=== PATIENT | female | born 1950 | race Caucasian/White ===

== ENCOUNTER → 2023-05-08 | Outpatient (CLI) | payer MEDICARE ==
[2023-05-08 12:51] LABS: INR 0.9 (<1.2); Partial Thromboplastin Time 26.6 sec (22.0-30.0); Prothrombin Time 10.1 sec (10.0-12.5)
[2023-05-08 15:12] LABS: HCT 44.4 % (37.2-46.3); HGB 14.6 g/dL (12.0-15.0); MCH 29.4 pg (27.0-32.0); MCHC 32.9 g/dL (32.0-37.0); MCV 89.5 FL (80.0-97.0); Mean Platelet Volume 10.1 FL (9.5-12.2); NRBC Per 100 WBC 0 X 10*3/uL (0.00-0.01); Platelet Count 270 X 10*3/uL (140-440); RBC 4.96 X 10*6/uL (4.10-5.20); RDW 12.8 % (11.5-14.5); WBC 9.89 X 10*3/uL (4.50-10.00)
[2023-05-08 16:27] LABS: ALT 25 U/L (8-44); AST 19 U/L (13-35); Albumin 4.8 g/dL (3.8-4.9); Albumin/Globulin Ratio 1.85 Ratio (1.60-3.17); Alkaline Phosphatase 75 U/L (41-126); BUN/Creat Ratio 37.67 Ratio (12.00-20.00); Blood Urea Nitrogen 22.6 mg/dL (9.0-27.0); Calcium 10.4 mg/dL (8.7-10.3); Carbon Dioxide 24.3 mmol/L (21.6-31.8); Chloride 102 mmol/L (96-109); Globulin 2.6 g/dL (1.6-3.3); Glucose 110 mg/dL (70-110); Potassium 4.4 mmol/L (3.5-5.5); Sodium 140 mmol/L (135-145); Total Bilirubin 0.4 mg/dL (0.3-1.2); Total Protein 7.4 g/dL (6.2-8.2)
== END | disposition home or self-care (01) ==
LOC: LABWHC1 11:07
PROVIDERS: ATTEND Orthopaedic Surgery
DX: Z01.818 Encounter for other preprocedural examination (principal); R94.31 Abnormal electrocardiogram [ECG] [EKG]; M16.11 Unilateral primary osteoarthritis, right hip; Z22.322 Carrier or suspected carrier of Methicillin resistant Staphylococcus aureus
CPT/HCPCS: 36415; 80053; 85027; 85610; 85730; 86850; 86900; 86901; 87070; 93005

== ENCOUNTER 2023-05-16 05:36 | Day surgery (SDC) | payer MEDICARE ==
[2023-05-08 16:21] VITALS: BMI 23.3
[~2023-05-16 05:36] MED LIST: ACETAMINOPHEN TAB 500 MG TAB PO PRN; GABAPENTIN 300 MG CAP PO PRN; MELOXICAM 7.5 MG TAB PO PRN; TRANEXAMIC 1,000 MG/100ML-NACL 1,000 MG in SALINE 1 100ML.BAG IVPB PRN
[2023-05-16] MEDS ORDERED: DEXAMETHASONE SOD PHOSPHATE 4 MG/ML 1 ML VIAL IV ONE (05:41)
[2023-05-16] MEDS ORDERED: LIDOCAINE 1% (10MG/ML) FOR IV START INTRADERMA PRN (05:41)
[2023-05-16] MEDS ORDERED: ONDANSETRON 4 MG/2 ML VIAL IVP ONE (05:41)
[2023-05-16] MEDS: LACTATED RINGERS 1,000 ML IV SCH (05:56)
[2023-05-16] MEDS ORDERED: ROPIVACAINE 5 MG/ML 30 ML VIAL ONE (06:51)
[2023-05-16] MEDS ORDERED: DEXAMETHASONE SOD PHOSPHATE 4 MG/ML 1 ML VIAL ONE (06:51)
[2023-05-16] MEDS ORDERED: MIDAZOLAM 2 MG/2 ML VIAL ONE (06:51)
[2023-05-16] MEDS ORDERED: TRANEXAMIC 1,000 MG/100ML-NACL PREMIX BAG ONE (06:51)
[2023-05-16] MEDS ORDERED: fentaNYL (PF) 50 MCG/ML 2 ML AMP ONE (06:51)
[2023-05-16] MEDS ORDERED: PROPOFOL 10 MG/ML 20 ML VIAL IV ONE (06:51)
[2023-05-16] MEDS ORDERED: PHENYLEPHRINE 10 MG/ML VIAL ONE (06:51)
[2023-05-16] MEDS ORDERED: HYDROmorphone 0.5 MG/0.5 ML SYRINGE IVP PRN ×4 (07:00→08:45)
[2023-05-16] MEDS ORDERED: MIDAZOLAM 2 MG/2 ML VIAL IV PRN (07:00)
[2023-05-16] MEDS ORDERED: ceFAZolin 1,000 MG in SODIUM CHLORIDE 0.9% 1,000 ML IRRIGATION ONE (07:21)
[2023-05-16] MEDS ORDERED: ROPIVACAINE 5 MG/ML 30 ML VIAL MISCELLANE ONE ×2 (07:31→08:12)
--- NOTE | 2023-05-16 08:18 | P.OP ---
Date of Procedure: 05/16/23 Preoperative Diagnosis: Severe osteoarthritis right hip Postoperative Diagnosis: Severe osteoarthritis right hip Procedure(s) Performed: Right total hip arthroplasty with a direct anterior approach Implants: [employer] Polarstem standard size 6 with a collar [employer] R3, 3 hole hemispherical acetabular shell, 54 mm [employer] Reflection 6.5 mm cancellus screw, 25 mm 2 [employer] R3, XLPE 20 acetabular liner [employer] Oxinium femoral head 36 mm, +0 All components were press-fit. The articulation is Oxinium on polyethylene. Anesthesia: spinal Surgeon: Baldo Yun Consumer Safety Officer #1: Kirsten Cloud Estimated Blood Loss (ml): 400 Pathology: none sent Condition: stable Disposition: PACU Indications for Procedure: After failure of conservative treatment we discussed the surgical and nonsu rgical treatment options at length. Patient wishes to proceed with a total hip arthroplasty with a direct anterior approach. Complications specific to this procedure were discussed at length, including but not limited to infection, leg length discrepancy, dislocation, nerve injury, and fracture. Covid-19 was also discussed at length with the patient, and they are aware of the current policies and procedures. The patient was given the option of delaying surgery, but they elect to proceed knowing these risks. Patient is aware of all these complications and informed consent was obtained Operative Findings: The operative findings are consistent with severe osteoarthritis of the right hip Description of Procedure: The patient was seen and evaluated in the preoperative area and the consent was reviewed. The operative site was marked with a skin marker. The patient verified the procedure and operative site. A AYSE block was placed by anesthesia in the preoperative area. The patient was then brought to the operating room and given preoperative antibiotics intravenously. 1 g of Tranexamic acid was also given intravenously. A spinal anesthetic was administered by the anesthesia department. The patient was then placed on the [place] table with the bony prominences well-padded. The hip area was then prepped with a ChloraPrep solution and draped in the usual sterile fashion. A universal timeout was then performed, which confirmed the patient's name, surgical site, ALLERGIES, and procedure being performed on the consent. Next the incision site was located at 1 cm distal and 4 cm lateral to the anterior superior iliac spine. The skin and subcutaneous tissues were sharply incised. Incision was carefully dissected down to the fascia overlying the tensor fascia chinmay muscle. This fascia was then incised in line with the muscle fibers. Care was taken to stay laterally in order to avoid injuring the lateral femoral cutaneous nerve. Next, using blunt finger dissection, the tensor fascia chinmay muscle was dissected off its investing fascia. The muscle was then carefully retracted laterally with a cobra retractor over the lateral neck of the femur. Next, the circumflex vessels were identified and cauterized using the Aquamantis device. The anterior hip capsule was then exposed. The capsule was then opened and an inverted T fashion. The retractors were then placed intracapsularly. The retractors were maintained intracapsular throughout the procedure. The proximal femur was then visualized. Fluoroscopic x-rays were then taken in order to evaluate the preoperative leg lengths. A small amount of traction was placed on the leg. The femoral neck was then osteotomized at the appropriate level above the lesser trochanter. A small wedge of bone was then removed from the remaining femoral head. Next, using a corkscrew the femoral head was removed from the acetabulum. On gross visual inspection, the femoral head had complete loss of articular cartilage and multiple periarticular osteophytes. The femoral head was then measured. Attention was then turned to the acetabulum. The acetabulum was exposed and any remaining labrum was excised. Sequential reaming of the acetabulum was performed using fluoroscopic guidance until there was a good bed of bleeding cancellus bone. When the appropriate size was reached, a trial was then placed. The position and fit of the trial was checked with fluoroscopy. The trial was then removed. Then, using fluoroscopic guidance, the final implant was impacted at 20 of anteversion and 40 of abduction, and fully seated in the acetabulum. 2 screws were then placed in the acetabulum. Again fluoroscopy was used to check position of the screws. Next, the liner was then impacted, with a 20 elevated liner located in the anterior superior quadrant. Component locking was confirmed. Attention was then directed to the femur. With the aid of the [place] table, the femur was externally rotated to approximately 130, extended, and adducted under the opposite leg. A side hook was then placed under the proximal femur, and the side hook elevator was used to elevate the proximal femur while releasing the capsule. Retractors were then placed. A capsular release was performed, as well as a release of the conjoined tendon, which afforded excellent v isualization of the proximal femur. Next, a box osteotome was used to lateralize the proximal femur. A boat hand was then used to locate the femoral canal. Sequential broaching was then performed with appropriate size which afforded excellent fixation in the proximal femur. A trial was then placed with appropriate head and neck, and the hip was gently reduced with the aid of the [place] table. Fluoroscopy was then used to check position of the components, as well as to evaluate the leg lengths and offset. The leg lengths and offset were measured as closely as possible to ensure stability of the hip. The hip was then gently dislocated and the trials were then removed. Final implants were then impacted and the hip was again reduced. Final fluoroscopic x-rays confirmed that the components were in anatomic position. The leg lengths and offset were measured and were found to coincide with the trial measurements. The hip was also taken through range of motion, and found to be stable. The hip was then copiously irrigated with antibiotic solution with pulsatile lavage. The hip was then irrigated with Irrisept solution. The soft tissues were then injected with a ropivacaine solution. A second dose of 1 g of Tranexamic acid was also given intravenously. The fascia was then closed with 2-0 strata fix suture. The subcutaneous tissue was closed with 3-0 Vicryl. The subcuticular tissue was closed with 3-0 strata fix suture. The skin was then closed with Exofin skin glue. After the glue and dried, and Optifoam silver impregnated dressing was applied. The patient was t hen transferred to the recovery room in stable condition. The elder assistant JANENE Freeman was required due to the complexity of surgery, and the need for skilled surgical resident for positioning, draping, exposure, retraction, and closure of the wound.
--- NOTE | 2023-05-16 08:28 | XR ---
EXAMINATION TYPE: XR Hip Limited RT DATE OF EXAM: 05/16/2023 CLINICAL HISTORY: Postoperative evaluation TECHNIQUE: Single portable view of the right hip was submitted. FINDINGS: Noted are changes of total hip arthroplasty with femoral and acetabular components appearin g well seated. Alignment is anatomic. Postsurgical soft tissue changes are evident. IMPRESSION: Satisfactory postoperative alignment
--- NOTE | 2023-05-16 08:32 | FL ---
Fluoroscopy History: Rt Hip-Ant Rt Hip-Ant 1.01min fluoro time 4.0994 DAP
[2023-05-16] MEDS ORDERED: LACTATED RINGERS 1,000 ML IV ONE (08:38)
[2023-05-16] MEDS ORDERED: ONDANSETRON 4 MG/2 ML VIAL IVP PRN (08:45)
[2023-05-16] MEDS ORDERED: MAGNESIUM HYDROXIDE 2,400 MG/30 ML CUP PO PRN (08:45)
[2023-05-16] MEDS ORDERED: NALOXONE 0.4 MG/ML 1 ML VIAL IV PRN (08:45)
[2023-05-16] MEDS ORDERED: HYDROcodone/APAP 7.5-325MG 1 EACH TAB PO PRN (08:48)
[2023-05-16] MEDS: SODIUM CHLORIDE 0.9% 1,000 ML IV SCH ×2 (10:34→14:31)
--- NOTE | 2023-05-16 11:22 | P.ANPRN ---
Procedure Note - Anesthesia - Nerve Block Performed Right Masters Single Date of Procedure: 05/16/23 Procedure Start Time: 06:32 Procedure Stop Time: 06:36 Location of Patient: PreOp Indication: Acute Post-Operative Pain, Requested by Surgeon Sedation Type: Sedate with meaningful contact maintained Preparation: Sterile Prep Position: Supine Needle Types: Pajunk Needle Gauge: 21 Ultrasound used to visualize needle placement: Yes Ultrasound used to observe medication spread: Yes Blood Aspirated: No Pain Paresthesia on Injection Noted: No Resistance on Injection: Normal Image Stored and Saved: Yes Events: Uneventful and Well Tolerated (Ropivacaine, 5% 20cc plus dexamethasone 4 mg)
--- NOTE | 2023-05-16 11:29 | P.CONS ---
History of Present Illness - Reason for Consult Consult date: 05/16/23 Psoriatic arthritis Requesting physician: Baldo Yun - Chief Complaint pain - History of Present Illness Patient is a 72-year-old female with hypertension, asthma and osteoarthritis who presented for elective right total hip arthroplasty. She tolerated the procedure well without any immediate postoperative complications. Patient seen and examined at bedside. She is doing well postoperatively. Pain is currently at a 4 out of 10. She denies any chest discomfort, shortness of breath, nausea, vomiting, lightheadedness. She denies any recent cough, cold, fever, flu. She was using a cane at home. She had held her Otezla for 2 weeks prior to surgery. Vital signs reviewed General: nontoxic, no distress, appears at stated age Derm: warm, dry Eyes: EOMI, no lid lag, anicteric sclera ENT: Nose and ears atraumatic Cardiovascular: S1S2 reg, no murmur, no edema Lungs: clear to auscultation bilateral, no rhonchi, no rales, no wheeze, no accessory muscle use Abdominal: soft, nontender to palpation, no guarding Neuro: CN II-XII grossly intact, No focal neuro deficits Psych: Alert, oriented, appropriate affect Assessment/Plan: 72-year-old female status post right direct anterior total hip arthroplasty Psoriatic arthritis with psoriasis -Patient should be able to resume Otezla as current 2021 preoperative guidelines from the [employer] recommend continuing this medication. With close monitoring for signs and symptoms of infection. Discussed with patient and daughter careful monitoring of temperature and incision site on discharge. Hypertension -Resume lisinopril 5 mg daily Dyslipidemia -Resume Lipitor 40 mg daily GERD -Protonix 40 mg daily Imaging: None new Data Review: Preoperative blood work reviewed: Hemoglobin 14.6, creatinine 0.6 Thank you for allowing us to participate in the care of this pleasant patient. Do not hesitate to contact us with questions. Someone can be reached from the [facility] hospitalist group all hours of the day at [phone] or via [employer]. This dictation was prepared using [employer] voice recognition software. Though every attempt is made to correct errors during dictation some may still exist. Past Medical History Past Medical History: Hyperlipidemia, Hypertension, Osteoarthritis (OA), Skin Disorder Additional Past Medical History / Comment(s): PSORIATIC ARTHRITIS History of Any Multi-Drug Resistant Organisms: None Reported Past Surgical History: Section, Orthopedic Surgery, Tonsillectomy Additional Past Surgical History / Comment(s): RT SHOULDER SX. COLONOSCOPY. ORIF LT ARM WITH HARDWARE. EPIDURAL INJECTION Past Anesthesia/Blood Transfusion Reactions: No Reported Reaction Past Psychological History: No Psychological Hx Reported Smoking Status: Former smoker Past Alcohol Use History: None Reported Additional Past Alcohol Use History / Comment(s): QUIT SMOKING 1979 Past Drug Use History: None Reported - Past Family History Father Family Medical History: Cancer Mother Family Medical History: Cancer Medications and Allergies Home Medications Medication Instructions Recorded Confirmed Type Acetaminophen [Tylenol Arthritis] 650 mg PO Q6HR PRN 05/08/23 05/16/23 History Apremilast [Otezla] 30 mg PO BID 05/08/23 05/16/23 History Aspirin EC [Ecotrin Low Dose] 81 mg PO DAILY 05/08/23 05/16/23 History Atorvastatin [Lipitor] 40 mg PO HS 05/08/23 05/16/23 History Biotin [Biotin Disolve] 10,000 mcg PO DAILY 05/08/23 05/16/23 History Calcium Carbonate/Vitamin D3 1 each PO DAILY 05/08/23 05/16/23 History [Calcium 600-Vit D3 62.5 Mcg (2,500 Iu)] Magnesium Oxide [Magnesium] 500 mg PO DAILY 05/08/23 05/16/23 History Meloxicam [Mobic] 15 mg PO DAILY 05/08/23 05/16/23 History Ubidecarenone [Coenzyme Q10] 200 mg PO DAILY 05/08/23 05/16/23 History Vitamin B Complex/Folic Acid 0.4 mg PO DAILY 05/08/23 05/16/23 History [Vitamin B Complex Tablet] Zinc Gluconate [Zinc] 50 mg PO DAILY 05/08/23 05/16/23 History lisinopriL [Zestril] 5 mg PO DAILY 05/08/23 05/16/23 History Omeprazole 20 mg PO DAILY 05/11/23 05/16/23 History Aspirin 325 mg PO BID #60 tab 05/16/23 Rx HYDROcodone/APAP 7.5-325MG [Horner 1 - 2 tab PO Q6H PRN #32 tab 05/16/23 Rx 7.5-325] Sennosides [Senokot] 2 tab PO DAILY PRN #60 tablet 05/16/23 Rx Allergies Allergy/AdvReac Type Severity Reaction Status Date / Time Penicillins Allergy Rash/Hives Verified 05/16/23 05:56 Physical Exam Osteopathic Statement: *. No significant issues noted on an osteopathic structural exam other than those noted in the History and Physical/Consult. Vitals: Vital Signs Temp Pulse Resp BP Pulse Ox 05/16/23 10:56 98.6 F 63 18 129/74 97 05/16/23 10:15 77 15 133/60 98 05/16/23 09:45 66 17 131/66 98 05/16/23 09:19 71 19 133/67 99 05/16/23 09:07 66 18 115/60 99 05/16/23 08:53 66 17 79/47 100 05/16/23 08:38 96.8 F L 64 14 98/45 100 05/16/23 06:46 97 18 140/64 97 05/16/23 06:20 97.4 F L 96 18 152/67 95 Intake and Output 05/15/23 05/16/23 05/16/23 22:59 06:59 14:59 Intake Total 650 201 Output Total 400 Balance 650 -199 Intake: IV 650 201 Output: Estimated Blood Loss 400 Other: Weight 110.2 kg 110.2 kg
[2023-05-16] MEDS: HYDROcodone/APAP 7.5-325MG 1 EACH TAB PO PRN (16:30)
[2023-05-16] MEDS: APREMILAST 30 MG PO SCH (21:42)
[2023-05-16] MEDS: ASPIRIN 325 MG TAB PO SCH (21:42)
[2023-05-16] MEDS: ATORVASTATIN 40 MG TAB PO SCH (21:42)
[2023-05-16] MEDS: SENNOSIDES-DOCUSATE SODIUM 1 EACH TAB PO SCH (21:42)
[2023-05-17] MEDS: LACTATED RINGERS 1,000 ML IV SCH (05:56)
[2023-05-17] MEDS: HYDROcodone/APAP 7.5-325MG 1 EACH TAB PO PRN ×3 (06:03→17:31)
[2023-05-17 06:42] LABS: Basophils # (A) 0.1 k/uL (0-0.2); Basophils % (A) 1 %; Eosinophils # (A) 0.1 k/uL (0-0.7); Eosinophils % (A) 1 %; HCT 42.1 % (34.0-46.0); HGB 13.7 gm/dL (11.4-16.0); Lymphocytes # (A) 2.6 k/uL (1.0-4.8); Lymphocytes % (A) 19 %; MCH 30.1 pg (25.0-35.0); MCHC 32.6 g/dL (31.0-37.0); MCV 92.2 fL (80.0-100.0); Mean Platelet Volume 9.8; Monocytes % (A) 7 %; Neutrophils # (A) 9.7 k/uL (1.3-7.7); Neutrophils % (A) 71 %; Platelet Count 131 k/uL (150-450); RBC 4.57 m/uL (3.80-5.40); WBC 13.7 k/uL (3.8-10.6)
--- NOTE | 2023-05-17 09:56 | P.PN ---
Subjective Progress Note Date: 05/17/23 This is a 72-year-old female who is status post right total hip arthroplasty with direct anterior approach. This is postoperative day #1 and patient is seen and evaluated at bedside today. Patient states that she is doing well and her pain is controlled. Patient states that she was able to work with physical therapy today. Patient states that she lives alone, but does have family nearby. Patient denies any fever/chills, chest pain, shortness breath, abdominal pain, numbness, weakness or tingling. Objective - Vital Signs Vital signs: Vital Signs Temp 97.9 F 05/17/23 07:18 Pulse 69 05/17/23 08:00 Resp 17 05/17/23 08:00 BP 124/70 05/17/23 07:18 Pulse Ox 96 05/17/23 07:18 FiO2 Intake & Output 05/16/23 05/17/23 05/17/23 18:59 06:59 18:59 Intake Total 201 480 Output Total 400 Balance -199 480 Weight 110.2 kg Intake: IV 201 Oral 480 Output: Estimated Blood Loss 400 Other: # Voids 3 1 - Exam Vital signs are stable. Patient is in no acute distress and is alert and oriented 3. Calf is soft and nontender to palpation. Dressing is clean, dry, and intact. Patient has full foot and ankle motion without pain or difficulty. Sensation intact. Neurovascular status and circulatory status are intact. - Labs CBC & Chem 7: 05/17/23 05:30 Labs: Abnormal Lab Results - Last 24 Hours (Table) 05/17/23 Range/Units 05:30 WBC 13.7 H (3.8-10.6) k/uL Plt Count 131 L (150-450) k/uL Neutrophils # 9.7 H (1.3-7.7) k/uL Assessment and Plan (1) Osteoarthritis of right hip Current Visit: Yes Status: Acute Code(s): M16.11 - UNILATERAL PRIMARY OSTEOARTHRITIS, RIGHT HIP SNOMED Code(s): 417406503152551 (2) S/P total hip arthroplasty Current Visit: Yes Status: Acute Code(s): Z96.649 - PRESENCE OF UNSPECIFIED ARTIFICIAL HIP JOINT SNOMED Code(s): 329516970043 Plan: Continue routine postop care and pain control. Continue anticoagulation with aspirin. Weightbearing as tolerated with a walker. Leave dressing in place for 7 days. Appreciate input from internal medicine. Anticipate discharge home with homecare in the next 24-48 hours.
[2023-05-17] MEDS: APREMILAST 30 MG PO SCH ×2 (10:03→20:33)
[2023-05-17] MEDS: ASPIRIN 325 MG TAB PO SCH ×2 (10:05→20:28)
[2023-05-17] MEDS: PANTOPRAZOLE 40 MG TABLET PO SCH (10:05)
[2023-05-17] MEDS: lisinopriL 5 MG TAB PO SCH (10:05)
--- NOTE | 2023-05-17 12:16 | P.PN ---
Subjective Progress Note Date: 05/17/23 Patient is a 72-year-old female with hypertension, asthma and osteoarthritis who presented for elective right total hip arthroplasty. She tolerated the procedure well without any immediate postoperative complications. Patient seen and examined at bedside. She is doing well, pain is well controlled now but needed 2 pain meds this morning. She deneis chest pain, SOB or nausea. appropriate affect oriented Alert no focal neuro deficits CN II-XI grossly intact no contractures no edema b/l lower extremities No gross muscle atrophy no guarding nontender to palpation Soft no accessory muscle use no rhonchi, no rales CTA bilateral no murmur S1S2 reg appears at stated age no distress Nontoxic Vital signs reviewed General: Nontoxic, no distress, appears at stated age Cardiovascular: S1S2 reg, no murmur Lungs: CTA bilateral, no rhonchi, no rales, no accessory muscle use Abdominal: Soft, nontender to palpation, no guarding Ext: No gross muscle atrophy, no edema b/l lower extremities, no contractures Neuro: CN II-XI grossly intact, no focal neuro deficits Psych: Alert, oriented, appropriate affect Assessment/Plan: 72-year-old female status post right direct anterior total hip arthroplasty Psoriatic arthritis with psoriasis -Patient resume Otezla as per 2021 preoperative guidelines from the [employer] recommend continuing this medication. With close monitoring for signs and symptoms of infection. Discussed with patient careful monitoring of temperature and incision site on discharge. Instructions added to discharge tab. Hypertension - lisinopril 5 mg daily leukocytosis, reactive - no need for further monitoring Dyslipidemia - Lipitor 40 mg daily GERD -Protonix 40 mg daily Medically optimized for discharge. Imaging: None new Data Review: Labs reviewed from today include CBC shows white blood cell count 13.7 and platelets 131 Thank you for allowing us to participate in the care of this pleasant patient. Do not hesitate to contact us with questions. Someone can be reached from the [place] hospitalist group all hours of the day at [phone] or via [employer]. This dictation was prepared using [employer] voice recognition software. Though every attempt is made to correct errors during dictation some may still exist. Objective - Vital Signs Vital signs: Vital Signs Temp 97.9 F 05/17/23 07:18 Pulse 69 05/17/23 08:00 Resp 17 01/31/24 08:00 BP 124/70 05/17/23 07:18 Pulse Ox 96 05/17/23 07:18 FiO2 Intake & Output 05/16/23 05/17/23 05/17/23 18:59 06:59 18:59 Intake Total 201 480 Output Total 400 Balance -199 480 Weight 110.2 kg Intake: IV 201 Oral 480 Output: Estimated Blood Loss 400 Other: # Voids 3 1 - Labs CBC & Chem 7: 05/17/23 05:30 Labs: Abnormal Lab Results - Last 24 Hours (Table) 05/17/23 Range/Units 05:30 WBC 13.7 H (3.8-10.6) k/uL Plt Count 131 L (150-450) k/uL Neutrophils # 9.7 H (1.3-7.7) k/uL
[2023-05-17] MEDS: SODIUM CHLORIDE 0.9% 1,000 ML IV SCH (14:37)
[2023-05-17] MEDS: SENNOSIDES-DOCUSATE SODIUM 1 EACH TAB PO SCH (20:27)
[2023-05-17] MEDS: ATORVASTATIN 40 MG TAB PO SCH (20:28)
[2023-05-18] MEDS: SODIUM CHLORIDE 0.9% 1,000 ML IV SCH (03:00)
[2023-05-18] MEDS: LACTATED RINGERS 1,000 ML IV SCH (04:57)
[2023-05-18] MEDS: HYDROcodone/APAP 7.5-325MG 1 EACH TAB PO PRN ×2 (06:17→12:32)
[2023-05-18] MEDS: PANTOPRAZOLE 40 MG TABLET PO SCH (07:42)
[2023-05-18] MEDS: ASPIRIN 325 MG TAB PO SCH (07:42)
[2023-05-18] MEDS: lisinopriL 5 MG TAB PO SCH (07:42)
[2023-05-18] MEDS: APREMILAST 30 MG PO SCH (07:54)
[2023-05-18 10:06] VITALS: RESP 18
--- NOTE | 2023-05-18 13:35 | P.PN ---
Subjective Progress Note Date: 05/18/23 Patient is a 72-year-old female with hypertension, asthma and osteoarthritis who presented for elective right total hip arthroplasty. She tolerated the procedure well without any immediate postoperative complications. 05/18 Patient was seen and examined. Pain well controlled. Urinating freely. Passing gas. Wanting to go home. Vital signs reviewed General: Nontoxic, no distress, appears at stated age Cardiovascular: S1S2 reg, no murmur Lungs: CTA bilateral, no rhonchi, no rales, no accessory muscle use Ext: No gross muscle atrophy, no edema b/l lower extremities, no contractures Neuro: no focal neuro deficits Psych: Alert, oriented, appropriate affect Psoriatic arthritis with psoriasis -Resume Otezla. 2021 preoperative guidelines from the [employer] recommends continuing this medication. With close monitoring for signs and symptoms of infection. Careful monitoring of temperature and incision site on discharge. Instructions added to discharge tab. Hypertension -Lisinopril 5 mg daily leukocytosis, reactive -No need for further monitoring Dyslipidemia -Lipitor 40 mg daily GERD -Protonix 40 mg daily Medically optimized for discharge. Objective - Vital Signs Vital signs: Vital Signs Temp 98.5 F 05/18/23 08:30 Pulse 90 05/18/23 08:30 Resp 18 05/18/23 08:30 BP 122/70 05/18/23 08:30 Pulse Ox 95 05/18/23 08:30 FiO2 Intake & Output 05/17/23 05/18/23 05/18/23 18:59 06:59 18:59 Intake Total 100 Balance 100 Intake: Oral 100 Other: Voiding Method Toilet # Voids 4 5 1 - Labs CBC & Chem 7: 05/17/23 05:30
--- NOTE | 2023-05-18 13:35 | P.DS ---
Providers Expected date of discharge: 05/18/23 Attending physician: Baldo Yun Consults: 05/16/23 08:45 Consult Physician Routine Consulting Provider: Ruby Rahman Consult Reason/Comments: medical management Do you want consulting provider notified?: Yes Primary care physician: Physician Nonstaff - Discharge Diagnosis(es) (1) Osteoarthritis of right hip Current Visit: Yes Status: Acute (2) S/P total hip arthroplasty Current Visit: Yes Status: Acute Hospital Course: This is a 72-year-old female with known history of degenerative arthritis of the right hip. The patient presented for evaluation as an outpatient. After discussion and consideration patient elects to proceed with total hip arthroplasty. The patient is seen preoperatively by Dr. Yun and medically cleared for surgery by their primary care physician. Patient is admitted to [facility] on 05/16/2023 for total hip arthroplasty. The procedure is performed without complication or sequelae. The patient is doing well postoperatively. Labs and vital signs are stable on day of discharge. On day of discharge patient's hip incision is healing well. There is minimal erythema. There is no drainage noted at this time. There is minimal soft tissue swelling to the hip and thigh. Patient has full foot and ankle motion without difficulty or pain. Calf is soft and nontender to palpation. Neurovascular status to the right lower extremity is intact. Patient is discharged home in good condition. Please see med rec for accurate list of home medications. Plan - Discharge Summary Discharge Rx Participant: Yes New Discharge Prescriptions: New Aspirin 325 mg PO BID #60 tab HYDROcodone/APAP 7.5-325MG [Clinton 7.5-325] 1 - 2 tab PO Q6H PRN #32 tab PRN Reason: Pain Sennosides [Senokot] 2 tab PO DAILY PRN #60 tablet PRN Reason: Constipation Continue lisinopriL [Zestril] 5 mg PO DAILY Vitamin B Complex/Folic Acid [Vitamin B Complex Tablet] 0.4 mg PO DAILY Magnesium Oxide [Magnesium] 500 mg PO DAILY Biotin [Biotin Disolve] 10,000 mcg PO DAILY Apremilast [Otezla] 30 mg PO BID Acetaminophen [Tylenol Arthritis] 650 mg PO Q6HR PRN PRN Reason: Pain Omeprazole 20 mg PO DAILY Zinc Gluconate [Zinc] 50 mg PO DAILY Atorvastatin [Lipitor] 40 mg PO HS Ubidecarenone [Coenzyme Q10] 200 mg PO DAILY Calcium Carbonate/Vitamin D3 [Calcium 600-Vit D3 62.5 Mcg (2,500 Iu)] 1 each PO DAILY Discontinued Aspirin EC [Ecotrin Low Dose] 81 mg PO DAILY Meloxicam [Mobic] 15 mg PO DAILY Discharge Medication List Acetaminophen [Tylenol Arthritis] 650 mg PO Q6HR PRN 05/08/23 [History] Apremilast [Otezla] 30 mg PO BID 05/08/23 [History] Atorvastatin [Lipitor] 40 mg PO HS 05/08/23 [History] Biotin [Biotin Disolve] 10,000 mcg PO DAILY 05/08/23 [History] Calcium Carbonate/Vitamin D3 [Calcium 600-Vit D3 62.5 Mcg (2,500 Iu)] 1 each PO DAILY 05/08/23 [History] Magnesium Oxide [Magnesium] 500 mg PO DAILY 05/08/23 [History] Ubidecarenone [Coenzyme Q10] 200 mg PO DAILY 05/08/23 [History] Vitamin B Complex/Folic Acid [Vitamin B Complex Tablet] 0.4 mg PO DAILY 05/08/23 [History] Zinc Gluconate [Zinc] 50 mg PO DAILY 05/08/23 [History] lisinopriL [Zestril] 5 mg PO DAILY 05/08/23 [History] Omeprazole 20 mg PO DAILY 05/11/23 [History] Aspirin 325 mg PO BID #60 tab 05/16/23 [Rx] HYDROcodone/APAP 7.5-325MG [Clinton 7.5-325] 1 - 2 tab PO Q6H PRN #32 tab 05/16/23 [Rx] Sennosides [Senokot] 2 tab PO DAILY PRN #60 tablet 05/16/23 [Rx] Follow up Appointment(s)/Referral(s): [facility], [NON-STAFF] - As Needed Baldo Ynu DO [Doctor of Osteopathic Medicine] - 06/08/23 9:00 am (With Kirsten) Activity/Diet/Wound Care/Special Instructions: Weightbearing as tolerated with walker. Leave dressing intact. Dressing may be removed by home care nurse or by patient in 7 days. Then change dressing twice daily until follow up. May shower with initial dressing intact and after removal. If dressing become saturated, please remove. Please take aspirin 325mg twice daily for 30 days to prevent blood clots. Recommend use of compression stockings daily until follow up to help prevent swelling and blood clots. May remove at night before sleeping. Please follow-up with [facility] in 2 weeks and call with any questions or concerns, . Monitor for infection closely. Monitor incision for erythema, warmth, and drainage. Please monitor for fevers closely. Discharge Disposition: HOME WITH HOME HEALTH SERVICES
[2023-05-18 15:49] VITALS: BP 116/74; PULSE 85; TEMP 99.2
== END 2023-05-18 16:25 | disposition home health service (06) ==
LOC: OR 05:36 → 4SSUR 08:38 → OR 05-18 16:25
PROVIDERS: ATTEND Orthopaedic Surgery
DX: M16.11 Unilateral primary osteoarthritis, right hip (principal); G89.18 Other acute postprocedural pain; I10 Essential (primary) hypertension; E78.5 Hyperlipidemia, unspecified; K21.9 Gastro-esophageal reflux disease without esophagitis; J45.909 Unspecified asthma, uncomplicated; Z79.899 Other long term (current) drug therapy; Z87.891 Personal history of nicotine dependence
CPT/HCPCS: 97116; 97530; 97161; 97535; 97165; 64447; 85025; 73501; 27130; C1776; J2250; J1100; J0690 ×3; J2405; J2795

== ENCOUNTER → 2023-09-18 | Outpatient (CLI) | payer MEDICARE ==
[2023-09-18 13:07] LABS: INR 0.9 (<1.2); Partial Thromboplastin Time 25.6 sec (22.0-30.0); Prothrombin Time 10.1 sec (10.0-12.5)
[2023-09-18 15:59] LABS: ALT 32 U/L (8-44); AST 26 U/L (13-35); Albumin 4.5 g/dL (3.8-4.9); Albumin/Globulin Ratio 1.96 Ratio (1.60-3.17); Alkaline Phosphatase 90 U/L (41-126); BUN/Creat Ratio 36.17 Ratio (12.00-20.00); Blood Urea Nitrogen 21.7 mg/dL (9.0-27.0); Calcium 9.7 mg/dL (8.7-10.3); Carbon Dioxide 21.3 mmol/L (21.6-31.8); Chloride 110 mmol/L (96-109); Globulin 2.3 g/dL (1.6-3.3); Glucose 83 mg/dL (70-110); Potassium 4.1 mmol/L (3.5-5.5); Sodium 144 mmol/L (135-145); Total Bilirubin 0.3 mg/dL (0.3-1.2); Total Protein 6.8 g/dL (6.2-8.2)
[2023-09-18 16:01] LABS: HCT 39.7 % (37.2-46.3); HGB 13.1 g/dL (12.0-15.0); MCH 27.8 pg (27.0-32.0); MCV 84.3 FL (80.0-97.0); Mean Platelet Volume 10.5 FL (9.5-12.2); NRBC Per 100 WBC 0 X 10*3/uL (0.00-0.01); Platelet Count 259 X 10*3/uL (140-440); RBC 4.71 X 10*6/uL (4.10-5.20); RDW 14.1 % (11.5-14.5); WBC 9.85 X 10*3/uL (4.50-10.00)
== END | disposition home or self-care (01) ==
LOC: LABPAT 12:01
PROVIDERS: ATTEND Orthopaedic Surgery
DX: Z01.818 Encounter for other preprocedural examination (principal); Z22.322 Carrier or suspected carrier of Methicillin resistant Staphylococcus aureus
CPT/HCPCS: 36415; 80053; 85027; 85610; 85730; 86850; 86900; 86901; 87070; 93005

== ENCOUNTER 2023-09-25 07:37 | Day surgery (SDC) | payer MEDICARE ==
[2023-09-20 14:49] VITALS: BMI 41.5
[~2023-09-25 07:37] MED LIST changes: -ACETAMINOPHEN TAB 500 MG TAB PO PRN; -GABAPENTIN 300 MG CAP PO PRN; +HYDROmorphone 0.5 MG/0.5 ML SYRINGE IVP PRN; +LIDOCAINE 1% (10MG/ML) FOR IV START INTRADERMA PRN; -MELOXICAM 7.5 MG TAB PO PRN
[2023-09-25] MEDS: MELOXICAM 7.5 MG TAB PO PRN (08:28)
[2023-09-25] MEDS: GABAPENTIN 300 MG CAP PO PRN (08:29)
[2023-09-25] MEDS: ACETAMINOPHEN TAB 500 MG TAB PO PRN (08:29)
[2023-09-25] MEDS: ONDANSETRON 4 MG/2 ML VIAL IVP ONE (08:29)
[2023-09-25] MEDS: DEXAMETHASONE SOD PHOSPHATE 4 MG/ML 1 ML VIAL IV ONE (08:30)
[2023-09-25] MEDS: LACTATED RINGERS 1,000 ML IV SCH ×3 (08:30→15:48)
[2023-09-25] MEDS: IV FLUID CONTINUATION 1,000 ML IV ONE (08:32)
[2023-09-25] MEDS: MIDAZOLAM 2 MG/2 ML VIAL IVP ONE (08:47)
[2023-09-25] MEDS ORDERED: ONDANSETRON 4 MG/2 ML VIAL IVP PRN (09:33)
[2023-09-25] MEDS ORDERED: HYDROmorphone 0.5 MG/0.5 ML SYRINGE IVP PRN ×3 (09:33)
[2023-09-25] MEDS ORDERED: NALOXONE 0.4 MG/ML 1 ML VIAL IV PRN (09:33)
[2023-09-25] MEDS ORDERED: MAGNESIUM HYDROXIDE 2,400 MG/30 ML CUP PO PRN (09:33)
[2023-09-25] MEDS ORDERED: ROPIVACAINE 5 MG/ML 30 ML VIAL ONE (09:57)
[2023-09-25] MEDS ORDERED: PROPOFOL 10 MG/ML 20 ML VIAL IV ONE (09:57)
[2023-09-25] MEDS ORDERED: ePHEDrine 50 MG/ML 1 ML VIAL ONE (09:57)
[2023-09-25] MEDS ORDERED: MIDAZOLAM 2 MG/2 ML VIAL ONE (09:57)
[2023-09-25] MEDS ORDERED: DEXAMETHASONE SOD PHOSPHATE 4 MG/ML 1 ML VIAL ONE (09:57)
[2023-09-25] MEDS ORDERED: PHENYLEPHRINE 10 MG/ML VIAL ONE (09:57)
[2023-09-25] MEDS: ceFAZolin 1,000 MG in SODIUM CHLORIDE 0.9% 1,000 ML IRRIGATION ONE (10:01)
[2023-09-25] MEDS: ROPIVACAINE 5 MG/ML 30 ML VIAL MISCELLANE ONE ×2 (10:31→11:23)
[2023-09-25] MEDS: LACTATED RINGERS 1,000 ML IV ONE (10:56)
--- NOTE | 2023-09-25 11:28 | P.OP ---
Date of Procedure: 09/25/23 Preoperative Diagnosis: Severe osteoarthritis left hip Postoperative Diagnosis: Severe osteoarthritis left hip Procedure(s) Performed: Left total hip arthroplasty with a direct anterior approach Implants: [employer] Polarstem standard size 6 with a collar [employer] R3, 3 hole hemispherical acetabular shell, 52 mm [employer] Reflection 6.5 mm cancellus screw, 20 mm 2 [employer] R3, XLPE 20 acetabular liner [employer] Oxinium femoral head 36 mm, +0 All components were press-fit. The articulation is Oxinium on polyethylene. Anesthesia: spinal Surgeon: Baldo Yun Anode Rebuilder #1: Kirsetn Cloud Estimated Blood Loss (ml): 300 Pathology: none sent Condition: stable Disposition: PACU Indications for Procedure: After failure of conservative treatment we discussed the surgical and nonsurgi matthew treatment options at length. Patient wishes to proceed with a total hip arthroplasty with a direct anterior approach. Complications specific to this procedure were discussed at length, including but not limited to infection, leg length discrepancy, dislocation, nerve injury, and fracture. Covid-19 was also discussed at length with the patient, and they are aware of the current policies and procedures. The patient was given the option of delaying surgery, but they elect to proceed knowing these risks. Patient is aware of all these complications and informed consent was obtained Operative Findings: The operative findings are consistent with severe osteoarthritis of the left hip Description of Procedure: The patient was seen and evaluated in the preoperative area and the consent was reviewed. The operative site was marked with a skin marker. The patient verified the procedure and operative site. A AYSE block was placed by anesthesia in the preoperative area. The patient was then brought to the operating room and given preoperative antibiotics intravenously. 1 g of Tranexamic acid was also given intravenously. A spinal anesthetic was administered by the anesthesia department. The patient was then placed on the [place] table with the bony prominences well-padded. The hip area was then prepped with a ChloraPrep solution and draped in the usual sterile fashion. A universal timeout was then performed, which confirmed the patient's name, surgical site, ALLERGIES, and procedure being performed on the consent. Next the incision site was located at 1 cm distal and 4 cm lateral to the anterior superior iliac spine. The skin and subcutaneous tissues were sharply incised. Incision was carefully dissected down to the fascia overlying the tensor fascia chinmay muscle. This fascia was then incised in line with the muscle fibers. Care was taken to stay laterally in order to avoid injuring the lateral femoral cu taneous nerve. Next, using blunt finger dissection, the tensor fascia chinmay muscle was dissected off its investing fascia. The muscle was then carefully retracted laterally with a cobra retractor over the lateral neck of the femur. Next, the circumflex vessels were identified and cauterized using the Aquamantis device. The anterior hip capsule was then exposed. The capsule was then opened and an inverted T fashion. The retractors were then placed intracapsularly. The retractors were maintained intracapsular throughout the procedure. The proximal femur was then visualized. Fluoroscopic x-rays were then taken in order to evaluate the preoperative leg lengths. A small amount of traction was placed on the leg. The femoral neck was then osteotomized at the appropriate level above the lesser trochanter. A small wedge of bone was then removed from the remaining femoral head. Next, using a corkscrew the femoral head was removed from the acetabulum. On gross visual inspection, the femoral head had complete loss of articular cartilage and multiple periarticular osteophytes. The femoral head was then measured. Attention was then turned to the acetabulum. The acetabulum was exposed and any remaining labrum was excised. Sequential reaming of the acetabulum was performed using fluoroscopic guidance until there was a good bed of bleeding cancellus bone. When the appropriate size was reached, a trial was then placed. The position and fit of the trial was checked with fluoroscopy. The trial was then removed. Then, using fluoroscopic guidance, the final implant was impacted at 20 of anteversion and 40 of abduction, and fully seated in the acetabulum. 2 screws were then placed in the acetabulum. Again fluoroscopy was used to check position of the screws. Next, the liner was then impacted, with a 20 elevated liner located in the anterior superior quadrant. Component locking was confirmed. Attention was then directed to the femur. With the aid of the [place] table, the femur was externally rotated to approximately 130, extended, and adducted under the opposite leg. A side hook was then placed under the proximal femur, and the side hook elevator was used to elevate the proximal femur while releasing the capsule. Retractors were then placed. A capsular release was performed, as well as a release of the conjoined tendon, which afforded excellent visua lization of the proximal femur. Next, a box osteotome was used to lateralize the proximal femur. A ironer hand was then used to locate the femoral canal. Sequential broaching was then performed with appropriate size which afforded excellent fixation in the proximal femur. A trial was then placed with appropriate head and neck, and the hip was gently reduced with the aid of the [place] table. Fluoroscopy was then used to check position of the components, as well as to evaluate the leg lengths and offset. The leg lengths and offset were measured as closely as possible to ensure stability of the hip. The hip was then gently dislocated and the trials were then removed. Final implants were then impacted and the hip was again reduced. Final fluoroscopic x-rays confirmed that the components were in anatomic position. The leg lengths and offset were measured and were found to coincide with the trial measurements. The hip was also taken through range of motion, and found to be stable. The hip was then copiously irrigated with antibiotic solution with pulsatile lavage. The hip was then irrigated with Irrisept solution. The soft tissues were then injected with a ropivacaine solution. A second dose of 1 g of Tranexamic acid was also given intravenously. The fascia was then closed with 2-0 strata fix suture. The subcutaneous tissue was closed with 3-0 Vicryl. The subcuticular tissue was closed with 3-0 strata fix suture. The skin was then closed with Exofin skin glue. After the glue and dried, and Optifoam silver impregnated dressing was applied. The patient was then transferred to the recovery room in stable condition. The safety assistant JANENE Freeman was required due to the complexity of surgery, and the need for skilled operating room surgical technician for positioning, draping, exposure, retraction, and closure of the wound.
--- NOTE | 2023-09-25 12:36 | XR ---
EXAMINATION TYPE: XR Hip Limited LT DATE OF EXAM: 09/25/2023 CLINICAL HISTORY: Postoperative evaluation TECHNIQUE: Single portable view of the left hip was submitted. FINDINGS: Noted are changes of total hip arthroplasty with femoral and acetabular components appearin g well seated. Alignment is anatomic. Postsurgical soft tissue changes are evident. IMPRESSION: Satisfactory postoperative alignment
--- NOTE | 2023-09-25 14:47 | FL ---
Fluoroscopy History: LEFT ANTERIOR HIP L hip replacement, 34sec fl time, DAP=4.9070
--- NOTE | 2023-09-25 15:13 | P.CONS ---
History of Present Illness - Reason for Consult Consult date: 09/25/23 Medical Management Requesting physician: Baldo Yun - History of Present Illness History of Presenting Illness: Patient is a pleasant 72-year-old female with a past medical history of hypertension, hyperlipidemia, GERD, osteoarthritis, and psoriatic arthritis. She is currently admitted to the hospital under orthopedic surgery team status post elective left total hip arthroplasty. We have been consulted for medical management throughout patient's hospitalization. Patient seen and fully evaluated in room 473. She currently reports feeling well stating postoperative pain is controlled and denies having any headache, lightheadedness, dizziness, chest pain, palpitations, shortness of breath, or experiencing any numbness/tingling/focal weakness in her extremities. Patient's movement and sensation intact of left lower extremity. She denies having any postoperative nausea or vomiting and is tolerating clear liquid diet at this time. Diet being advanced. Patient reports she has been up and ambulated with 2 person assist to restroom and has even urinated without difficulties since completion of surgery. Review of systems: Pertinent positives and negatives as discussed in HPI, a complete review of systems was performed and all other systems are negative. Physical exam: Vital signs reviewed and stable. General: Nontoxic, no distress and appears stated age. Derm: Skin warm and dry, normal coloration for ethnicity. Head: Atraumatic, normocephalic and symmetric. Eyes: EOMs intact, no lid lag, and anicteric sclera Mouth: no lip lesions, mucus membranes moist Cardiovascular: regular rate and rhythm with normal S1S2, no murmur, positive posterior tibial pulses bilaterally, and cap refill < 2 seconds. Lungs: Respirations even, regular, and unlabored on room air. Lungs CTA bilaterally, no rhonchi, no rales, no wheezing, and no accessory muscle usage. Abdominal: soft, nontender to palpation, no guarding, no appreciable organomegaly Ext:. No gross muscle atrophy, no edema, no contractures. Postoperative dressing and ice pack in place to left hip. Movement and sensation intact. Neuro: Speech clear, face symmetrical and CN II-XII grossly intact with no noted focal neuro deficits Psych: Alert and oriented to person, place, time, and situation. Appropriate and pleasant affect. Assessment and Plan of Care: Severe osteoarthritis of left hip Status post left total hip arthroplasty Management per primary admitting orthopedic surgery team including DVT prophylaxis, pain management, weightbearing, wound/dressing changes, and PT/OT. DVT prophylaxis currently with aspirin 325 mg twice daily. Hypertension Continue daily medication regimen with lisinopril 5 mg daily. Hyperlipidemia Continue daily medication regimen with atorvastatin 40 mg nightly. Psoriatic arthritis Continue daily medication regimen with Otezla 30 mg twice daily. GERD Continue daily medication regimen with Protonix 40 mg daily. Data reviewed: Vital signs reviewed. Blood pressure 133/81, heart rate 98, respiratory rate 17, temp 97.6 F, and SpO2 of 97% on room air Reviewed preoperative labs completed 09/18/2023. CBC unremarkable with WBC count of 9.85, hemoglobin 13.1, platelet count of 259. Coagulation profile was normal findings. BMP revealed elevated chloride of 110, bicarb of 21.3, and slightly elevated anion gap of 12.70. Renal function unremarkable with BUN of 21.7, creatinine 0.6, GFR of 96. Liver profile was also unremarkable. Will follow-up with postoperative labs tomorrow. Thank you for allowing us to participate in the care of this pleasant patient. Do not hesitate to contact us with questions. Someone can be reached from the [facility] hospitalist group all hours of the day at [phone] or via [employer]. Patient was seen independently by Nurse Practitioner. This document was prepared using [employer] 1 [employer] dictation software. Please allow for errors in an/syq 13 nav/c2 operator while rare they do occur. I reviewed the documentation as provided by the CAMI above, who is the original author of this note. I agree with the documented assessment and plan, with the following changes: none Past Medical History Past Medical History: GERD/Reflux, Hyperlipidemia, Hypertension, Osteoarthritis (OA), Skin Disorder Additional Past Medical History / Comment(s): PSORIATIC ARTHRITIS History of Any Multi-Drug Resistant Organisms: None Reported Past Surgical History: Section, Hysterectomy, Orthopedic Surgery, Tonsillectomy Additional Past Surgical History / Comment(s): RT SHOULDER SX. COLONOSCOPY. ORIF LT ARM WITH HARDWARE. EPIDURAL INJECTION Past Anesthesia/Blood Transfusion Reactions: No Reported Reaction Additional Past Anesthesia/Blood Transfusion Reaction / Comm: unk if had blood transfusion Past Psychological History: No Psychological Hx Reported Smoking Status: Former smoker Past Alcohol Use History: None Reported Additional Past Alcohol Use History / Comment(s): QUIT SMOKING 1979,started smoking at age 20, 1ppd Past Drug Use History: None Reported - Past Family History Father Family Medical History: Cancer Additional Family Medical History / Comment(s): multiple myeloma,pacemaker Mother Family Medical History: Cancer Additional Family Medical History / Comment(s): breast,lung Medications and Allergies Home Medications Medication Instructions Recorded Confirmed Type Acetaminophen [Tylenol Arthritis] 650 mg PO Q8HR PRN 05/08/23 09/20/23 History Atorvastatin [Lipitor] 40 mg PO HS 05/08/23 09/20/23 History Calcium Carbonate/Vitamin D3 1 each PO DAILY 05/08/23 09/20/23 History [Calcium 600-Vit D3 62.5 Mcg (2,500 Iu)] Magnesium Oxide [Magnesium] 500 mg PO DAILY 05/08/23 09/20/23 History Ubidecarenone [Coenzyme Q10] 100 mg PO DAILY 05/08/23 09/20/23 History Vitamin B Complex/Folic Acid 0.4 mg PO DAILY 05/08/23 09/20/23 History [Vitamin B Complex Tablet] Zinc Gluconate [Zinc] 50 mg PO DAILY 05/08/23 09/20/23 History lisinopriL [Zestril] 5 mg PO QAM 05/08/23 09/20/23 History Omeprazole 20 mg PO QAM 05/11/23 09/20/23 History Sennosides [Senokot] 2 tab PO DAILY PRN #60 tablet 05/16/23 09/20/23 Rx Apremilast [Otezla] 30 mg PO BID 09/20/23 09/20/23 History Aspirin 81 mg PO DAILY 09/20/23 09/20/23 History Ibuprofen 400 mg PO DAILY PRN 09/20/23 09/20/23 History Meloxicam [Mobic] 7.5 mg PO DAILY PRN 09/20/23 09/20/23 History Naproxen Sodium [Aleve] 440 mg PO DAILY PRN 09/20/23 09/20/23 History Aspirin 325 mg PO BID #60 tab 09/25/23 Rx HYDROcodone/APAP 7.5-325MG [Talent 1 - 2 tab PO Q6H PRN #32 tab 09/25/23 Rx 7.5-325] Sennosides [Senokot] 2 tab PO DAILY PRN #60 tablet 09/25/23 Rx Allergies Allergy/AdvReac Type Severity Reaction Status Date / Time Penicillins Allergy Rash/Hives, Verified 09/20/23 14:29 swelling Physical Exam Osteopathic Statement: *. No significant issues noted on an osteopathic structural exam other than those noted in the History and Physical/Consult. Vitals: Vital Signs Temp Pulse Pulse Resp BP BP Pulse Ox 09/25/23 14:21 98 16 95/65 96 09/25/23 13:51 94 16 128/58 96 09/25/23 13:36 97 16 132/56 95 09/25/23 13:21 94 16 124/56 98 09/25/23 13:07 95 16 141/63 96 09/25/23 12:51 89 16 149/71 96 09/25/23 12:36 87 16 121/57 95 09/25/23 12:21 86 16 110/61 99 09/25/23 12:06 89 16 113/56 100 09/25/23 11:51 97.6 F 97 16 106/59 100 09/25/23 08:56 81 16 146/65 99 09/25/23 08:07 97.4 F L 84 16 176/77 98 Intake and Output 09/25/23 09/25/23 09/25/23 06:59 14:59 22:59 Intake Total 1901 Output Total 800 Balance 1101 Intake: IV 1901 Output: Urine 500 Estimated Blood Loss 300 Other: Weight 114 kg
--- NOTE | 2023-09-25 15:23 | XR ---
EXAMINATION TYPE: XR Hip Limited LT Intraoperative/procedural fluoroscopic services were provided. To isa fluoroscopy time scoliosis is 34.7 seconds with a total of 4 submitted images to PACS. Please see the operative/procedural note for further details. DAP: 4.90 Gycm2
[2023-09-25] MEDS: droPERidol 5 MG/2 ML VIAL IVP ONE (15:47)
[2023-09-25] MEDS: SODIUM CHLORIDE 0.9% 1,000 ML IV SCH (15:49)
[2023-09-25] MEDS: HYDROcodone/APAP 7.5-325MG 1 EACH TAB PO PRN (15:54)
--- NOTE | 2023-09-25 20:11 | P.ANPRN ---
Procedure Note - Anesthesia - Nerve Block Performed Left Guerrero Single Time Out Performed: Yes Date of Procedure: 09/25/23 Procedure Start Time: 08:46 Procedure Stop Time: 08:52 Location of Patient: PreOp Indication: Acute Post-Operative Pain, Requested by Surgeon Sedation Type: Sedate with meaningful contact maintained Preparation: Sterile Prep, Sterile Dressing Position: Supine Needle Types: Pajunk Needle Gauge: 21 Ultrasound used to visualize needle placement: Yes Ultrasound used to observe medication spread: Yes Blood Aspirated: No Pain Paresthesia on Injection Noted: No Resistance on Injection: Normal Image Stored and Saved: Yes Events: Uneventful and Well Tolerated (ropi .5% 20cc plus dexamethasone 4mg)
[2023-09-25] MEDS: Apremilast [Otezla] 30 MG Tablet PO SCH (20:49)
[2023-09-25] MEDS: ATORVASTATIN 40 MG TAB PO SCH (20:52)
[2023-09-25] MEDS: ASPIRIN 325 MG TAB PO SCH (20:53)
[2023-09-25] MEDS: SENNOSIDES-DOCUSATE SODIUM 1 EACH TAB PO SCH (20:53)
[2023-09-26] MEDS: PANTOPRAZOLE 40 MG TABLET PO SCH (06:29)
[2023-09-26] MEDS: CALCIUM CARB-VIT D 500 MG-5 MCG TAB PO SCH (08:38)
[2023-09-26] MEDS: lisinopriL 5 MG TAB PO SCH (08:38)
[2023-09-26] MEDS: MAGNESIUM OXIDE 400 MG TAB PO SCH (08:38)
[2023-09-26] MEDS: ZINC SULFATE 220 MG CAP PO SCH (08:38)
[2023-09-26] MEDS: HYDROcodone/APAP 7.5-325MG 1 EACH TAB PO PRN (08:43)
[2023-09-26 08:55] LABS: Basophils # (A) 0.02 X 10*3/uL (0.00-0.10); Basophils % (A) 0.1 %; Eosinophils # (A) 0.02 X 10*3/uL (0.04-0.35); Eosinophils % (A) 0.1 %; HCT 37.4 % (37.2-46.3); HGB 12.1 g/dL (12.0-15.0); Lymphocytes # (A) 1.54 X 10*3/uL (0.90-5.00); Lymphocytes % (A) 11.5 %; MCH 27.8 pg (27.0-32.0); MCHC 32.4 g/dL (32.0-37.0); Mean Platelet Volume 10.5 FL (9.5-12.2); Monocytes # (A) 1.25 X 10*3/uL (0.20-1.00); Monocytes % (A) 9.4 %; NRBC Per 100 WBC 0 X 10*3/uL (0.00-0.01); Neutrophils # (A) 10.38 X 10*3/uL (1.80-7.70); Neutrophils % (A) 77.8 %; Platelet Count 240 X 10*3/uL (140-440); RBC 4.35 X 10*6/uL (4.10-5.20); RDW 14.4 % (11.5-14.5); WBC 13.36 X 10*3/uL (4.50-10.00)
[2023-09-26] MEDS ORDERED: NON FORMULARY DRUG (Vitamin B Complex/Folic Acid [Vitamin B Complex Tablet] 0.4 MG Tablet) PO SCH (09:00)
[2023-09-26] MEDS ORDERED: NON FORMULARY DRUG (Ubidecarenone [Coenzyme Q10] 200 MG Capsule) PO SCH (09:00)
[2023-09-26 09:05] LABS: Blood Urea Nitrogen 12.1 mg/dL (9.0-27.0); Calcium 8.8 mg/dL (8.7-10.3); Carbon Dioxide 22.3 mmol/L (21.6-31.8); Chloride 107 mmol/L (96-109); Glucose 113 mg/dL (70-110); Potassium 4.6 mmol/L (3.5-5.5); Sodium 141 mmol/L (135-145)
--- NOTE | 2023-09-26 11:37 | P.PN ---
Subjective Progress Note Date: 09/26/23 This is a 72-year-old female who is status post left total hip arthroplasty. This is postoperative day #1 and patient is seen and evaluated at bedside with Dr. Baldo Yun. Patient states that she does have some pain in the left hip this morning, but was able to walk with physical therapy. Patient states that she plans on discharge home with home care tomorrow. Objective - Vital Signs Vital signs: Vital Signs Temp 97.7 F 09/26/23 06:51 Pulse 60 09/26/23 09:00 Resp 16 09/26/23 09:00 BP 100/65 09/26/23 06:51 Pulse Ox 100 09/26/23 06:51 FiO2 Intake & Output 09/25/23 09/26/23 09/26/23 18:59 06:59 18:59 Intake Total 1901 Output Total 800 Balance 1101 Weight 114 kg Intake: IV 1901 Output: Urine 500 Estimated Blood Loss 300 Other: Voiding Method Toilet Toilet Toilet # Voids 2 3 - Exam Vital signs are stable. Patient is in no acute distress and is alert and oriented 3. Calf is soft and nontender to palpation. Dressing is clean, dry, and intact. Patient has full foot and ankle motion without pain or difficulty. Sensation intact. Neurovascular status and circulatory status are intact. - Labs CBC & Chem 7: 09/26/23 03:51 09/26/23 03:51 Labs: Abnormal Lab Results - Last 24 Hours (Table) 09/26/23 09/26/23 Range/Units 03:51 03:51 WBC 13.36 H (4.50-10.00) X 10*3/uL Immature Gran # 0.15 H (0.00-0.04) X 10*3/uL Neutrophils # 10.38 H (1.80-7.70) X 10*3/uL Monocytes # 1.25 H (0.20-1.00) X 10*3/uL Eosinophils # 0.02 L (0.04-0.35) X 10*3/uL Creatinine 0.5 L (0.6-1.5) mg/dL BUN/Creatinine Ratio 24.20 H (12.00-20.00) Ratio Glucose 113 H (70-110) mg/dL Assessment and Plan (1) Osteoarthritis of left hip Current Visit: Yes Status: Acute Code(s): M16.12 - UNILATERAL PRIMARY OSTEOARTHRITIS, LEFT HIP SNOMED Code(s): 977876632910838 (2) S/P total hip arthroplasty Current Visit: No Status: Acute Code(s): Z96.649 - PRESENCE OF UNSPECIFIED ARTIFICIAL HIP JOINT SNOMED Code(s): 050784261378 Plan: Continue routine postop care and pain control. Continue anticoagulation. Weightbearing as tolerated with a walker. Leave dressing in place for 7 days. Appreciate input from internal medicine. Anticipate discharge home with homecare in the next 24-48 hours.
--- NOTE | 2023-09-26 12:20 | P.PN ---
Subjective Progress Note Date: 09/26/23 Hospital Course: Patient is a pleasant 72-year-old female with a past medical history of hypertension, hyperlipidemia, GERD, osteoarthritis, and psoriatic arthritis. She is currently admitted to the hospital under orthopedic surgery team status post elective left total hip arthroplasty. We have been consulted for medical management throughout patient's hospitalization. Physical exam: Patient seen and fully evaluated at bedside this morning. She reports mild to moderate postoperative pain in left hip but denies any other complaints including headache, lightheadedness, dizziness, chest pain, palpitations, short ness of breath, cough or congestion, abdominal pain, nausea, vomiting, or any other complaints. She denies having any postoperative nausea or vomiting and denies any urinary retention stating urinating without any difficulties. Vital signs reviewed and stable. General: Nontoxic, no distress and appears stated age. Derm: Skin warm and dry, normal coloration for ethnicity. Head: Atraumatic, normocephalic and symmetric. Eyes: EOMs intact, no lid lag, and anicteric sclera Mouth: no lip lesions, mucus membranes moist Cardiovascular: regular rate and rhythm with normal S1S2, no murmur, positive posterior tibial pulses bilaterally, and cap refill < 2 seconds. Lungs: Respirations even, regular, and unlabored on room air. Lungs CTA bilaterally, no rhonchi, no rales, no wheezing, and no accessory muscle usage. Abdominal: soft, nontender to palpation, no guarding, no appreciable organome carlota Ext:. No gross muscle atrophy, no edema, no contractures. Postoperative dressing and ice pack in place to left hip. Movement and sensation intact. Neuro: Speech clear, face symmetrical and CN II-XII grossly intact with no noted focal neuro deficits Psych: Alert and oriented to person, place, time, and situation. Appropriate and pleasant affect. Assessment and Plan of Care: Severe osteoarthritis of left hip Status post left total hip arthroplasty Management per primary admitting orthopedic surgery team including DVT prop hylaxis, pain management, weightbearing, wound/dressing changes, and PT/OT. DVT prophylaxis currently with aspirin 325 mg twice daily. Hypertension Continue daily medication regimen with lisinopril 5 mg daily. Hyperlipidemia Continue daily medication regimen with atorvastatin 40 mg nightly. Psoriatic arthritis Continue daily medication regimen with Otezla 30 mg twice daily. GERD Continue daily medication regimen with Protonix 40 mg daily. Data reviewed: Vital signs reviewed. Blood pressure 100/65, heart rate 60, respiratory rate 16, temp 97.7 F, and SpO2 of 100% on room air. Reviewed postoperative labs. Postoperative hemoglobin stable at 12.1 with preoperative hemoglobin of 13.1. Reviewed preoperative labs completed 09/18/2023. CBC unremarkable with WBC count of 9.85, hemoglobin 13.1, p WBC count slightly elevated at 13.36 this is expected and reactive secondary to surgical procedure. BMP unremarkable. Blood glucose 113. Magnesium 2.0. From a medical perspective, patient is medically optimized and cleared for discharge once cleared by primary admitting orthopedic surgery team. Thank you for allowing us to participate in the care of this pleasant patient. Do not hesitate to contact us with questions. Someone can be reached from the [facility] hospitalist group all hours of the day at [phone] or via [employer]. Patient was seen independently by Nurse Practitioner. This document was prepared using M[employer] dictation software. Please allow for errors in ice cream freezer while rare they do occur. . I reviewed the documentation as provided by the CAMI above, who is the original author of this note. I agree with the documented assessment and plan, with the following changes: none Objective - Vital Signs Vital signs: Vital Signs Temp 97.4 F L 09/26/23 02:00 Pulse 62 09/26/23 02:00 Resp 14 09/26/23 02:00 BP 101/59 09/26/23 02:00 Pulse Ox 91 L 09/26/23 02:00 FiO2 Intake & Output 09/25/23 09/26/23 09/26/23 18:59 06:59 18:59 Intake Total 1901 Output Total 800 Balance 1101 Weight 114 kg Intake: IV 1901 Output: Urine 500 Estimated Blood Loss 300 Other: Voiding Method Toilet Toilet # Voids 2 3 - Labs CBC & Chem 7: 09/26/23 03:51 09/26/23 03:51
--- NOTE | 2023-09-27 10:35 | P.PN ---
Subjective Progress Note Date: 09/27/23 This is a 72-year-old female who is status post left total hip arthroplasty. This is postoperative day #2 and patient is seen and evaluated at bedside with Dr. Baldo Yun. Patient states that she is having some pain in the left hip, but is able to work with physical therapy. Patient denies any new c omplaints today. Objective - Vital Signs Vital signs: Vital Signs Temp 98.2 F 09/27/23 07:42 Pulse 81 09/27/23 07:42 Resp 15 09/27/23 07:42 BP 126/70 09/27/23 07:42 Pulse Ox 96 09/27/23 07:42 FiO2 Intake & Output 09/26/23 09/27/23 09/27/23 18:59 06:59 18:59 Other: Voiding Method Toilet Toilet # Voids 4 2 - Exam Vital signs are stable. Patient is in no acute distress and is alert and oriented 3. Calf is soft and nontender to palpation. Dressing is clean, dry, and intact. Patient has full foot and ankle motion without pain or difficulty. Sensation intact. Neurovascular status and circulatory status are intact. - Labs CBC & Chem 7: 09/26/23 03:51 09/26/23 03:51 Assessment and Plan (1) Osteoarthritis of left hip Current Visit: Yes Status: Acute Code(s): M16.12 - UNILATERAL PRIMARY OSTEOARTHRITIS, LEFT HIP SNOMED Code(s): 471191222185146 (2) S/P total hip arthroplasty Current Visit: No Status: Acute Code(s): Z96.649 - PRESENCE OF UNSPECIFIED ARTIFICIAL HIP JOINT SNOMED Code(s): 056107593459 Plan: Continue routine postop care and pain control. Continue anticoagulation. Weightbearing as tolerated with a walker. Leave dressing in place for 7 days. Appreciate input from internal medicine. Anticipate discharge home with homecare tomorrow.
--- NOTE | 2023-09-27 13:24 | P.PN ---
Subjective Progress Note Date: 09/27/23 Hospital Course: Patient is a pleasant 72-year-old female with a past medical history of hypertension, hyperlipidemia, GERD, osteoarthritis, and psoriatic arthritis. She is currently admitted to the hospital under orthopedic surgery team status post elective left total hip arthroplasty. We have been consulted for medical management throughout patient's hospitalization. Physical exam: Patient seen and fully evaluated at bedside this morning. She is postoperative day 2 and reports only mild postoperative pain in left hip and thigh at this time. She continues to deny having any other complaints including headache, lightheadedness, dizziness, chest pain, palpitations, shortness of breath, cough or congestion, abdominal pain, nausea, vomiting, or any other complaints. She denies having any postoperative nausea or vomiting and denies any urinary retention stating urinating without any difficulties. Vital signs reviewed and stable. General: Nontoxic, no distress and appears stated age. Derm: Skin warm and dry, normal coloration for ethnicity. Head: Atraumatic, normocephalic and symmetric. Eyes: EOMs intact, no lid lag, and anicteric sclera Mouth: no lip lesions, mucus membranes moist Cardiovascular: regular rate and rhythm with normal S1S2, no murmur, positive posterior tibial pulses bilaterally, and cap refill < 2 seconds. Lungs: Respirations even, regular, and unlabored on room air. Lungs CTA bilaterally, no rhonchi, no rales, no wheezing, and no accessory muscle usage. Abdominal: soft, nontender to palpation, no guarding, no appreciable organomegaly Ext:. No gross muscle atrophy, no edema, no contractures. Postoperative dressing and ice pack in place to left hip. Movement and sensation intact. Neuro: Speech clear, face symmetrical and CN II-XII grossly intact with no noted focal neuro deficits Psych: Alert and oriented to person, place, time, and situation. Appropriate and pleasant affect. Assessment and Plan of Care: Severe osteoarthritis of left hip Status post left total hip arthroplasty Management per primary admitting orthopedic surgery team including DVT prophylaxis, pain management, weightbearing, wound/dressing changes, and PT/OT. DVT prophylaxis currently with aspirin 325 mg twice daily. Hypertension Continue daily medication regimen with lisinopril 5 mg daily. Hyperlipidemia Continue daily medication regimen with atorvastatin 40 mg nightly. Psoriatic arthritis Continue daily medication regimen with Otezla 30 mg twice daily. GERD Continue daily medication regimen with Protonix 40 mg daily. Data reviewed: Vital signs reviewed. Blood pressure 126/70, heart rate 81, respiratory rate 15, temp 98.2 F, and SpO2 of 96% on room air. Postoperative hemoglobin stable at 12.1 with preoperative hemoglobin of 13.1. Reviewed preoperative labs completed 09/18/2023. CBC unremarkable with WBC count of 9.85, hemoglobin 13.1, p WBC count slightly elevated at 13.36 this is expected and reactive secondary to surgical procedure. BMP unremarkable. Blood glucose 113. Magnesium 2.0. From a medical perspective, patient is medically optimized and cleared for discharge once cleared by primary admitting orthopedic surgery team. Thank you for allowing us to participate in the care of this pleasant patient. Do not hesitate to contact us with questions. Someone can be reached from the [facility] hospitalist group all hours of the day at [phone] or via [employer]. Patient was seen independently by Nurse Practitioner. This document was prepared using Moni dictation software. Please allow for errors in filer and sander while rare they do occur. I reviewed the documentation as provided by the CAMI above, who is the original author of this note. I agree with the documented assessment and plan, with the following changes: none Objective - Vital Signs Vital signs: Vital Signs Temp 98.2 F 09/27/23 07:42 Pulse 81 09/27/23 07:42 Resp 15 09/27/23 07:42 BP 126/70 09/27/23 07:42 Pulse Ox 96 09/27/23 07:42 FiO2 Intake & Output 09/26/23 09/27/23 09/27/23 18:59 06:59 18:59 Other: Voiding Method Toilet Toilet # Voids 4 2 - Labs CBC & Chem 7: 09/28/23 05:12 09/26/23 03:51 Labs: Abnormal Lab Results - Last 24 Hours (Table) 09/26/23 09/26/23 Range/Units 03:51 03:51 WBC 13.36 H (4.50-10.00) X 10*3/uL Immature Gran # 0.15 H (0.00-0.04) X 10*3/uL Neutrophils # 10.38 H (1.80-7.70) X 10*3/uL Monocytes # 1.25 H (0.20-1.00) X 10*3/uL Eosinophils # 0.02 L (0.04-0.35) X 10*3/uL Creatinine 0.5 L (0.6-1.5) mg/dL BUN/Creatinine Ratio 24.20 H (12.00-20.00) Ratio Glucose 113 H (70-110) mg/dL
[2023-09-28 08:31] LABS: Basophils # (A) 0.07 X 10*3/uL (0.00-0.10); Basophils % (A) 0.6 %; Eosinophils # (A) 0.29 X 10*3/uL (0.04-0.35); Eosinophils % (A) 2.4 %; HCT 33.8 % (37.2-46.3); HGB 10.8 g/dL (12.0-15.0); Lymphocytes # (A) 2.63 X 10*3/uL (0.90-5.00); MCH 27.8 pg (27.0-32.0); MCV 86.9 FL (80.0-97.0); Mean Platelet Volume 10.9 FL (9.5-12.2); Monocytes # (A) 1.11 X 10*3/uL (0.20-1.00); Monocytes % (A) 9.3 %; NRBC Per 100 WBC 0 X 10*3/uL (0.00-0.01); Neutrophils # (A) 7.68 X 10*3/uL (1.80-7.70); Neutrophils % (A) 64.4 %; Platelet Count 216 X 10*3/uL (140-440); RBC 3.89 X 10*6/uL (4.10-5.20); RDW 14.4 % (11.5-14.5); WBC 11.94 X 10*3/uL (4.50-10.00)
[2023-09-28 08:35] VITALS: BP 109/74; PULSE 67; RESP 19; TEMP 98.1
--- NOTE | 2023-09-28 10:07 | P.PN ---
Subjective Progress Note Date: 09/28/23 Hospital Course: Patient is a pleasant 72-year-old female with a past medical history of hypertension, hyperlipidemia, GERD, osteoarthritis, and psoriatic arthritis. She is currently admitted to the hospital under orthopedic surgery team status post elective left total hip arthroplasty. We have been consulted for medical management throughout patient's hospitalization. Physical exam: Patient seen and fully evaluated at bedside this morning. She is postoperative day 2 and reports only mild postoperative pain in left hip and thigh at this time. She continues to deny having any other complaints including headache, lightheadedness, dizziness, chest pain, palpitations, shortness of breath, cough or congestion, abdominal pain, nausea, vomiting, or any other complaints. She denies having any postoperative nausea or vomiting and denies any urinary retention stating urinating without any difficulties. Vital signs reviewed and stable. General: Nontoxic, no distress and appears stated age. Derm: Skin warm and dry, normal coloration for ethnicity. Head: Atraumatic, normocephalic and symmetric. Eyes: EOMs intact, no lid lag, and anicteric sclera Mouth: no lip lesions, mucus membranes moist Cardiovascular: regular rate and rhythm with normal S1S2, no murmur, positive posterior tibial pulses bilaterally, and cap refill < 2 seconds. Lungs: Respirations even, regular, and unlabored on room air. Lungs CTA bilaterally, no rhonchi, no rales, no wheezing, and no accessory muscle usage. Abdominal: soft, nontender to palpation, no guarding, no appreciable organomegaly Ext:. No gross muscle atrophy, no edema, no contractures. Postoperative dressing and ice pack in place to left hip. Movement and sensation intact. Neuro: Speech clear, face symmetrical and CN II-XII grossly intact with no noted focal neuro deficits Psych: Alert and oriented to person, place, time, and situation. Appropriate and pleasant affect. Assessment and Plan of Care: Severe osteoarthritis of left hip Status post left total hip arthroplasty Management per primary admitting orthopedic surgery team including DVT prophylaxis, pain management, weightbearing, wound/dressing changes, and PT/OT. DVT prophylaxis currently with aspirin 325 mg twice daily. Acute postoperative blood loss anemia Postoperative leukocytosis Stable and expected findings. WBC count 11.94 and hemoglobin of 10.8. No need for transfusion or any other interventions at this time. Constipation In addition to Senokot patient started on MiraLAX 17 g daily and given a one-time dose of lactulose 30 g. Hypertension Continue daily medication regimen with lisinopril 5 mg daily. Hyperlipidemia Continue daily medication regimen with atorvastatin 40 mg nightly. Psoriatic arthritis Continue daily medication regimen with Otezla 30 mg twice daily. GERD Continue daily medication regimen with Protonix 40 mg daily. Data reviewed: Vital signs reviewed. Blood pressure 109/74, heart rate 67, respiratory rate 19, temp 98.1 F, and SpO2 of 96% on room air. Morning labs reviewed. CBC showing stable but improving postoperative leukocytosis with WBC count decreasing from 13.36 down to 11.94 this morning and stable postoperative blood loss anemia with hemoglobin of 10.8. Patient is medically optimized and cleared from medical perspective for discharge once cleared by primary admitting orthopedic surgery team. Thank you for allowing us to participate in the care of this pleasant patient. Do not hesitate to contact us with questions. [facility] all hours of the day at [phone] or via [employer] ([email or web address]). Patient was seen independently by Nurse Practitioner. This document was prepared using [employer] Dem[employer] dictation software. Please allow for errors in software design analyst while rare they do occur. I reviewed the documentation as provided by the CAMI above, who is the original author of this note. I agree with the documented assessment and plan, with the following changes: none Objective - Vital Signs Vital signs: Vital Signs Temp 98.7 F 09/28/23 01:30 Pulse 76 09/28/23 01:30 Resp 18 09/28/23 01:30 BP 125/76 09/28/23 01:30 Pulse Ox 95 09/28/23 01:30 FiO2 Intake & Output 09/27/23 09/28/23 09/28/23 18:59 06:59 18:59 Intake Total 840 Balance 840 Intake: Intake, IV Titration 840 Amount Sodium Chloride 0.9% 1, 840 000 ml @ 70 mls/hr IV . [id number] CHASIDY Rx#:[id number] Other: # Voids 2 2 - Labs CBC & Chem 7: 09/28/23 05:12 09/26/23 03:51
--- NOTE | 2023-09-28 10:11 | P.DS ---
Providers Expected date of discharge: 09/28/23 Attending physician: Baldo Yun Consults: 09/25/23 09:33 Consult Physician Routine Consulting Provider: Ruby Rahman Consult Reason/Comments: medical management Do you want consulting provider notified?: Yes Primary care physician: Physician Nonstaff - Discharge Diagnosis(es) (1) Osteoarthritis of left hip Status: Acute (2) S/P total hip arthroplasty Status: Acute Hospital Course: This is a 72-year-old female with known history of degenerative arthritis of the left hip. The patient presented for evaluation as an outpatient. After discussion and consideration patient elects to proceed with total hip arthroplasty. The patient is seen preoperatively by Dr. Yun and medically cleared for surgery by their primary care physician. Patient is admitted to [facility] on 09/25/2023 for total hip arthroplasty. The procedure is performed without complication or sequelae. The patient is doing well postoperatively. Labs and vital signs are stable on day of discharge. On day of discharge patient's hip incision is healing well. There is minimal erythema. There is no drainage noted at this time. There is minimal soft tissue swelling to the hip and thigh. Patient has full foot and ankle motion without difficulty or pain. Calf is soft and nontender to palpation. Neurovascular status to the left lower extremity is intact. Patient is discharged home in good condition. Please see med rec for accurate list of home medications. Plan - Discharge Summary Discharge Rx Participant: No New Discharge Prescriptions: New Aspirin 325 mg PO BID #60 tab HYDROcodone/APAP 7.5-325MG [Traphill 7.5-325] 1 - 2 tab PO Q6H PRN #32 tab PRN Reason: Pain Sennosides [Senokot] 2 tab PO DAILY PRN #60 tablet PRN Reason: Constipation Continue lisinopriL [Zestril] 5 mg PO QAM Vitamin B Complex/Folic Acid [Vitamin B Complex Tablet] 0.4 mg PO DAILY Magnesium Oxide [Magnesium] 500 mg PO DAILY Acetaminophen [Tylenol Arthritis] 650 mg PO Q8HR PRN PRN Reason: Pain Omeprazole 20 mg PO QAM Apremilast [Otezla] 30 mg PO BID Zinc Gluconate [Zinc] 50 mg PO DAILY Atorvastatin [Lipitor] 40 mg PO HS Ubidecarenone [Coenzyme Q10] 100 mg PO DAILY Calcium Carbonate/Vitamin D3 [Calcium 600-Vit D3 62.5 Mcg (2,500 Iu)] 1 each PO DAILY Sennosides [Senokot] 2 tab PO DAILY PRN #60 tablet PRN Reason: Constipation No Action Aspirin 81 mg PO DAILY Meloxicam [Mobic] 7.5 mg PO DAILY PRN PRN Reason: Pain Ibuprofen 400 mg PO DAILY PRN PRN Reason: Pain Naproxen Sodium [Aleve] 440 mg PO DAILY PRN PRN Reason: Pain Discharge Medication List Acetaminophen [Tylenol Arthritis] 650 mg PO Q8HR PRN 05/08/23 [History] Atorvastatin [Lipitor] 40 mg PO HS 05/08/23 [History] Calcium Carbonate/Vitamin D3 [Calcium 600-Vit D3 62.5 Mcg (2,500 Iu)] 1 each PO DAILY 05/08/23 [History] Magnesium Oxide [Magnesium] 500 mg PO DAILY 05/08/23 [History] Ubidecarenone [Coenzyme Q10] 100 mg PO DAILY 05/08/23 [History] Vitamin B Complex/Folic Acid [Vitamin B Complex Tablet] 0.4 mg PO DAILY 05/08/23 [History] Zinc Gluconate [Zinc] 50 mg PO DAILY 05/08/23 [History] lisinopriL [Zestril] 5 mg PO QAM 05/08/23 [History] Omeprazole 20 mg PO QAM 05/11/23 [History] Sennosides [Senokot] 2 tab PO DAILY PRN #60 tablet 05/16/23 [Rx] Apremilast [Otezla] 30 mg PO BID 09/20/23 [History] Aspirin 81 mg PO DAILY 09/20/23 [History] Ibuprofen 400 mg PO DAILY PRN 09/20/23 [History] Meloxicam [Mobic] 7.5 mg PO DAILY PRN 09/20/23 [History] Naproxen Sodium [Aleve] 440 mg PO DAILY PRN 09/20/23 [History] Aspirin 325 mg PO BID #60 tab 09/25/23 [Rx] HYDROcodone/APAP 7.5-325MG [Traphill 7.5-325] 1 - 2 tab PO Q6H PRN #32 tab 09/25/23 [Rx] Sennosides [Senokot] 2 tab PO DAILY PRN #60 tablet 06/10/24 [Rx] Follow up Appointment(s)/Referral(s): Harpal Elliott MD [REFERRING] - 1 Week (call at discharge to set up appointment and establish care) [facility] [[facility]] - As Needed Baldo Yun DO [Doctor of Osteopathic Medicine] - 2 Weeks Activity/Diet/Wound Care/Special Instructions: Weightbearing as tolerated with walker. Leave dressing intact. Dressing may be removed by home care nurse or by patient in 7 days. Then change dressing twice daily until follow up. May shower with initial dressing intact and after removal. If dressing become saturated, please remove. Please take aspirin 325mg twice daily for 30 days to prevent blood clots. Recommend use of compression stockings daily until follow up to help prevent swelling and blood clots. May remove at night before sleeping. Please follow-up with [facility] in 2 weeks and call with any questions or concerns, . Discharge Disposition: HOME WITH HOME HEALTH SERVICES
[2023-09-28] MEDS: LACTULOSE 20 GM/30 ML CUP PO ONE (11:17)
[2023-09-28] MEDS: polyethylene glycoL 3350 17 GM POWD.PACK PO SCH (11:17)
== END 2023-09-28 13:17 | disposition home health service (06) ==
LOC: OR 07:37 → 4SSUR 14:30 → OR 09-28 13:17
PROVIDERS: ATTEND Orthopaedic Surgery
DX: M16.12 Unilateral primary osteoarthritis, left hip (principal); E78.5 Hyperlipidemia, unspecified; G89.18 Other acute postprocedural pain; D62 Acute posthemorrhagic anemia; I10 Essential (primary) hypertension; K21.9 Gastro-esophageal reflux disease without esophagitis; L40.50 Arthropathic psoriasis, unspecified; Z79.01 Long term (current) use of anticoagulants; Z79.82 Long term (current) use of aspirin; Z79.899 Other long term (current) drug therapy; Z87.891 Personal history of nicotine dependence; Z88.0 Allergy status to penicillin
CPT/HCPCS: 27130; 97161; 97166; 64447; 80048; 83735; 85025 ×2; 73501; C1776; J2250; J1100; J0690 ×3; J2405; J2795; J2704; J2371